=== PATIENT | male | born 1965 | race Caucasian/White ===

== ENCOUNTER 2016-07-27 23:24 | Emergency (ER) | payer BC ==
[2016-07-27] MEDS ORDERED: ASPIRIN 81 MG TABLET, CHEWABLE PO ONE (23:32)
--- NOTE | 2016-07-27 23:46 | EKG REPORT ---
SEVERITY:- BORDERLINE ECG - SINUS RHYTHM BORDERLINE INFERIOR Q WAVES : Confirmed by: Tani Ragsdale 27-Jul-2016 23:45:04
--- NOTE | 2016-07-27 23:58 | ER Document Report ---
ED Cardiac - General Time seen by provider: 22:30 Mode of Arrival: Medic Information source: Patient, Emergency Med Personnel TRAVEL OUTSIDE OF THE [place] IN LAST 30 DAYS: No - HPI Patient complains to provider of: Chest pain, Chest tightness <RADHA WITT - Last Filed: 07/28/16 04:09> <GISELAFLAKO TRANG - Last Filed: 07/28/16 05:48> - General Chief Complaint: Chest Pain Stated Complaint: CHEST PAIN Notes: Patient is a 50-year-old male presents to emergency department with complaints of chest pain. Patient stated that she had an episode of chest pain yesterday morning around 02:30 and the patient took 2 nitroglycerin. Patient had more chest pain this evening and took aspirin prior to EMS arrival. EMS gave the patient nitroglycerin. Patient has a history of 4 cardiac stents with the most recent being placed in 2013. Patient states he recently had a hernia repair. Patient has been off of his medications for about one month. Patient states that he sees a coding quality coordinator in [place]. Patient states that currently he just has some chest tightness doesn't have any actual pain now. (RADHA WITT) - Related Data Allergies/Adverse Reactions: Penicillins Allergy (Verified 07/28/16 05:30) pineapple Allergy (Verified 07/28/16 05:30) Past Medical History - General Information source: Patient - Social History Smoking Status: Current Every Day Smoker Chew tobacco use (# tins/day): No Frequency of alcohol use: None Drug Abuse: None Family History: None - Past Medical History Cardiac Medical History: Reports: Hx Coronary Artery Disease, Hx Hypercholesterolemia, Hx Hypertension Endocrine Medical History: Reports: Hx Diabetes Mellitus Type 2 Traumatic Medical History: Reports: Hx Fractures Past Surgical History: Reports: Hx Cardiac Surgery, Hx Coronary Stent - x4, Other - hernia repair - Immunizations Immunizations up to date: No Hx Diphtheria, Pertussis, Tetanus Vaccination: No <RADHA WITT - Last Filed: 07/28/16 04:09> Review of Systems - Review of Systems Constitutional: No symptoms reported EENT: No symptoms reported Cardiovascular: See HPI, Chest pain Respiratory: No symptoms reported Gastrointestinal: No symptoms reported Genitourinary: No symptoms reported Male Genitourinary: No symptoms reported Musculoskeletal: No symptoms reported Skin: No symptoms reported Hematologic/Lymphatic: No symptoms reported Neurological/Psychological: No symptoms reported -: Yes All other systems reviewed and negative <RADHA WITT - Last Filed: 07/28/16 04:09> Physical Exam - Vital signs Interpretation: Normal - General General appearance: Appears well, Alert In distress: Mild - HEENT Head: Normocephalic, Atraumatic Eyes: Normal Pupils: PERRL Mucous membranes: Moist - Respiratory Respiratory status: No respiratory distress Chest status: Nontender Breath sounds: Normal Chest palpation: Normal - Cardiovascular Rhythm: Regular Heart sounds: Normal auscultation Murmur: No - Abdominal Inspection: Normal Distension: No distension Bowel sounds: Normal Tenderness: Nontender Organomegaly: No organomegaly - Back Back: Normal, Nontender - Extremities General upper extremity: Normal inspection, Normal ROM, Normal strength General lower extremity: Normal inspection, Normal ROM, Normal strength - Neurological Neuro grossly intact: Yes Cognition: Normal Orientation: AAOx4 Bibi Coma Scale Eye Opening: Spontaneous Steedman Coma Scale Verbal: Oriented Steedman Coma Scale Motor: Obeys Commands Steedman Coma Scale Total: 15 Speech: Normal - Psychological Associated symptoms: Normal affect, Normal mood - Skin Skin Temperature: Warm Skin Moisture: Dry <RADHA WITT - Last Filed: 07/28/16 04:09> Course - Laboratory Result Diagrams: 07/28/16 00:55 07/28/16 01:15 - Consults [facility] Transfer Time consulted: 02:36 Dr. Grajeda Time consulted: 02:45 Consulted provider: will see as inpatient <RADHA WITT - Last Filed: 07/28/16 04:09> - Laboratory Result Diagrams: 07/28/16 00:55 07/28/16 01:15 - Diagnostic Test Radiology reviewed: Reports reviewed - EKG Interpretation by Me EKG shows normal: Sinus rhythm Rate: Normal Rhythm: NSR <FLAKO HIGGINS - Last Filed: 07/28/16 05:48> - Re-evaluation Re-evalutation: 07/28/16 05:44 Patient is a 50-year-old male who comes in for chest pressure. Patient has not wanted to take nitroglycerin here in the emergency department. Patient has a troponin of 0.152. No acute changes on EKG. Patient was discussed with the coding quality coordinator at [facility] and will be accepted there for transfer due to his history and probable N STEMI today. Recommend giving the patient Lovenox and nitroglycerin. Patient denies any chest pressure at this time and does not want to take nitroglycerin. He is otherwise stable for transfer. Still awaiting bed at [facility] at this time. (FLAKO HIGGINS) - Vital Signs Vital signs: Temp Pulse Resp BP Pulse Ox 98.0 F 93 17 118/66 100 07/27/16 23:52 07/27/16 23:52 07/27/16 23:52 07/27/16 23:52 07/28/16 01:59 (RADHA WITT) (FLAKO HIGGINS) - Laboratory Laboratory results interpreted by me: 07/28/16 07/28/16 00:55 01:15 MCHC 36.8 H RDW 14.3 H Carbon Dioxide 20 L BUN 27 H Glucose 237 H Creatine Kinase 214 H (FLAKO HIGGINS) - Consults [facility] Transfer Reason for consultation: 07/28/16 02:36 Called transfer center for possible transfer, they will contact the hospitalist and call back. (RADHA WITT) Dr. Grajeda Reason for consultation: 07/28/16 02:36 Patient will be transferred to [facility], accepting physician is Dr. Grajeda. (RADHA WITT) Critical Care Note - Critical Care Note Total time excluding time spent on procedures (mins): 45 - evaluation and management of chest pain, diagnosis of on semi-, coordination of transfer, counseling of patient <FLAKO HIGGINS - Last Filed: 07/28/16 05:48> Discharge <RADHA WITT - Last Filed: 07/28/16 04:09> <FLAKO HIGGINS - Last Filed: 07/28/16 05:48> - Discharge Clinical Impression: NSTEMI (non-ST elevated myocardial infarction) Condition: Stable Disposition: [facility] Referrals: ISAC CARRERO MD [Primary Care Provider] - Follow up as needed Scribe Attestation: 07/28/16 05:46 I personally performed the services described in the documentation, reviewed and edited the documentation which was dictated to the scribe in my presence, and it accurately records my words and actions. (FLAKO HIGGINS) Scribe Documentation - Scribe Written by Gena:: Radha Witt 07/28/16 01:50 acting as scribe for :: Gisela <RADHA WITT - Last Filed: 07/28/16 04:09>
[2016-07-28 01:16] LABS: ABSOLUTE BASOPHILS # (AUTO) 0.1 10^3/uL (0.0-0.2); ABSOLUTE EOSINOPHILS # (AUTO) 0.2 10^3/uL (0.0-0.6); ABSOLUTE LYMPHOCYTES (AUTO) 2.6 10^3/uL (0.5-4.7); ABSOLUTE MONOCYTES (AUTO) 0.8 10^3/uL (0.1-1.4); ABSOLUTE NEUT (AUTO) 6.7 10^3/uL (1.7-8.2); BASOPHILS % (AUTO) 0.9 % (0-2); EOSINOPHILS % (AUTO) 2.4 % (0-6); HEMATOCRIT 38.4 % (37.9-51.0); HEMOGLOBIN 14.1 g/dL (13.5-17.0); HGB HCT DIFFERENCE 3.9; LYMPHOCYTES % (AUTO) 24.8 % (13-45); MEAN CORPUSCULAR HEMOGLOBIN 30.9 pg (27.0-33.4); MEAN CORPUSCULAR HGB CONC 36.8 g/dL (32.0-36.0); MEAN CORPUSCULAR VOLUME 84 fl (80-97); MONOCYTES % (AUTO) 7.7 % (3-13); RED BLOOD COUNT 4.57 10^6/uL (4.35-5.55); RED CELL DISTRIBUTION WIDTH 14.3 % (11.5-14.0); SEGMENTED NEUTROPHILS % (AUTO) 64.2 % (42-78); WHITE BLOOD COUNT 10.4 10^3/uL (4.0-10.5)
[2016-07-28 02:09] LABS: ALANINE AMINOTRANSFERASE 40 U/L (21-72); ALBUMIN 3.5 g/dL (3.5-5.0); ALKALINE PHOSPHATASE 106 U/L (38-126); ANION GAP 11 (5-19); ASPARTATE AMINO TRANSFERASE 33 U/L (17-59); BILIRUBIN,TOTAL 0.5 mg/dL (0.2-1.3); BLOOD UREA NITROGEN 27 mg/dL (7-20); CALCIUM 8.8 mg/dL (8.4-10.2); CARBON DIOXIDE 20 mmol/L (22-30); CHLORIDE 106 mmol/L (98-107); CREATINE KINASE 214 U/L (55-170); GLUCOSE 237 mg/dL (75-110); POTASSIUM 4.2 mmol/L (3.6-5.0); TOTAL PROTEIN 6.9 g/dL (6.3-8.2)
[2016-07-28 02:10] LABS: ALCOHOL < 10 mg/dL (NONE DETECTED)
[2016-07-28 02:21] LABS: CREATINE KINASE MB 2.14 ng/mL (<4.55)
[2016-07-28] MEDS ORDERED: NORMAL SALINE 1000 ML 1,000 ML IV ONE (02:24)
[2016-07-28 02:25] LABS: TROPONIN I 0.152 ng/mL
[2016-07-28] MEDS ORDERED: NITROGLYCERIN/D5W 250 ML IV PRN (02:38)
[2016-07-28] MEDS ORDERED: ENOXAPARIN SODIUM INJ 100 MG/1 ML DISP.SYRIN SUBCUT SCH ×3 (03:15→18:00)
[2016-07-28] MEDS ORDERED: ENOXAPARIN SODIUM INJ 100 MG/1 ML DISP.SYRIN SUBCUT ONE (03:30)
--- NOTE | 2016-07-28 10:47 | ER Document Report ---
[id number] is becoming anxious about being here so long, concerned about the medical bills that he cannot afford. He is not having pain at this time. He is encouraged to stay to get treatment, and that he has probably started close off a step or has another acute narrowing in one of his coronary arteries He will be given a meal, he has all of his regular medications in a bag, he was requested to take all his regular medications that he is supposed to take this morning from his own supply. The med list was given to his nurse to put into the med reconciliation portion of the chart to bring it up to date. 07/28/16 11:34 The nurse informed me the patient requested to go outside for fresh air. I asked her to see if he would be willing to take a nicotine patch, was told he refuses that that he wants to go outside. I told the nurse that was entirely up to the patient as he was not a prisoner, as he stated himself earlier. 07/28/16 14:15 The patient was checked in upon when transport arrived. He reports he continues to remain pain free and has no complaints at this time. His vital signs are stable.
[2016-07-28 13:34] VITALS: BP 103/68
== END 2016-07-28 13:59 | disposition short-term general hospital (02) ==
LOC: ER 23:24
DX: I21.4 Non-ST elevation (NSTEMI) myocardial infarction (principal); R07.89 Other chest pain; F17.200 Nicotine dependence, unspecified, uncomplicated; I25.10 Atherosclerotic heart disease of native coronary artery without angina pectoris; E78.00 Pure hypercholesterolemia, unspecified; I10 Essential (primary) hypertension; E11.9 Type 2 diabetes mellitus without complications; Z91.018 Allergy to other foods; Z88.0 Allergy status to penicillin
CPT/HCPCS: 93005; 99291; 96372; 96360; 36415; 82553; 80307; 82550; 85025; 80053; 84484; 71010; 93010; J7030; J1650

== ENCOUNTER 2018-07-15 16:58 | Observation (INO) | payer SELFPAY ==
--- NOTE | 2018-07-15 18:53 | ER Document Report ---
ED Medical Screen (RME) - General Chief Complaint: Chest Pain Stated Complaint: CHEST PAIN Time Seen by Provider: 07/15/18 18:46 Primary Care Provider: ISAC CARRERO MD [Primary Care Provider] - Follow up as needed Mode of Arrival: Ambulatory Information source: Patient Notes: This is a 52-year-old man with a history of coronary artery disease (4 stents, last one 2 years ago at [facility]-Dr Alarcon), hypertension, diabetes, dyslipidemia who presents to the emergency room with intermittent retrosternal chest pain worse with exertion over the past week. Patient states on average she has had a cardiac stent every 2 years and he states that the symptoms are similar to previous episodes before requiring a stent in the past. Patient did take his full dose aspirin today TRAVEL OUTSIDE OF THE [place] IN LAST 30 DAYS: No - Related Data Allergies/Adverse Reactions: Penicillins Allergy (Verified 07/28/16 05:30) pineapple Allergy (Verified 07/28/16 05:30) Past Medical History - Social History Chew tobacco use (# tins/day): No Frequency of alcohol use: Occasional Drug Abuse: None Family history: CAD, CVA, DM, Hyperlipidemia, Hypertension, Malignancy, Thyroid Disfunction - Past Medical History Cardiac Medical History: Reports: Hx Coronary Artery Disease, Hx Hypercholesterolemia, Hx Hypertension Endocrine Medical History: Reports: Hx Diabetes Mellitus Type 2 Renal/ Medical History: Denies: Hx Peritoneal Dialysis Traumatic Medical History: Reports: Hx Fractures Past Surgical History: Reports: Hx Cardiac Surgery, Hx Coronary Stent - x4, Other - hernia repair - Immunizations Immunizations up to date: No Hx Diphtheria, Pertussis, Tetanus Vaccination: No Physical Exam - Vital signs Vitals: Temp Pulse Resp BP Pulse Ox 97.7 F 89 16 124/75 98 07/15/18 17:08 07/15/18 17:08 07/15/18 17:08 07/15/18 17:08 07/15/18 17:08 Course - Vital Signs Vital signs: Temp Pulse Resp BP Pulse Ox 97.7 F 89 16 124/75 98 07/15/18 17:08 07/15/18 17:08 07/15/18 17:08 07/15/18 17:08 07/15/18 17:08 Doctor's Discharge - Discharge Referrals: ISAC CARRERO MD [Primary Care Provider] - Follow up as needed
--- NOTE | 2018-07-15 19:11 | RADIOLOGY REPORT (SQ) ---
EXAM DESCRIPTION: CHEST SINGLE VIEW COMPLETED DATE/TIME: 07/15/2018 7:01 pm REASON FOR STUDY: cp COMPARISON: None. EXAM PARAMETERS: NUMBER OF VIEWS: One view. TECHNIQUE: Single frontal radiographic view of the chest acquired. RADIATION DOSE: NA LIMITATIONS: None. FINDINGS: LUNGS AND PLEURA: No opacities, masses or pneumothorax. No pleural effusion. MEDIASTINUM AND HILAR STRUCTURES: No masses. Contour normal. HEART AND VASCULAR STRUCTURES: Heart normal in size. Normal vasculature. BONES: No acute findings. HARDWARE: None in the chest. OTHER: No other significant finding. IMPRESSION: NO ACUTE RADIOGRAPHIC FINDING IN THE CHEST. TECHNICAL DOCUMENTATION: JOB ID: [id number] [employer]- All Rights Reserved Reading location - IP/workstation name: [email or web address]
[2018-07-15 19:39] LABS: ABSOLUTE BASOPHILS # (AUTO) 0.1 10^3/uL (0.0-0.2); ABSOLUTE EOSINOPHILS # (AUTO) 0.2 10^3/uL (0.0-0.6); ABSOLUTE LYMPHOCYTES (AUTO) 2.3 10^3/uL (0.5-4.7); ABSOLUTE MONOCYTES (AUTO) 0.6 10^3/uL (0.1-1.4); ABSOLUTE NEUT (AUTO) 5.6 10^3/uL (1.7-8.2); BASOPHILS % (AUTO) 0.6 % (0-2); EOSINOPHILS % (AUTO) 1.9 % (0-6); HEMATOCRIT 40.6 % (37.9-51.0); HEMOGLOBIN 14.1 g/dL (13.5-17.0); LYMPHOCYTES % (AUTO) 25.9 % (13-45); MEAN CORPUSCULAR HEMOGLOBIN 29.5 pg (27.0-33.4); MEAN CORPUSCULAR HGB CONC 34.8 g/dL (32.0-36.0); MEAN CORPUSCULAR VOLUME 85 fl (80-97); MONOCYTES % (AUTO) 6.6 % (3-13); PLATELET COUNT 163 10^3/uL (150-450); RED BLOOD COUNT 4.79 10^6/uL (4.35-5.55); RED CELL DISTRIBUTION WIDTH 14.3 % (11.5-14.0); TOTAL CELLS COUNTED % (AUTO) 100 %; WHITE BLOOD COUNT 8.7 10^3/uL (4.0-10.5)
[2018-07-15 19:59] LABS: ALANINE AMINOTRANSFERASE 44 U/L (21-72); ALBUMIN 4.6 g/dL (3.5-5.0); ALKALINE PHOSPHATASE 79 U/L (38-126); ANION GAP 8 (5-19); ASPARTATE AMINO TRANSFERASE 25 U/L (17-59); BILIRUBIN,DIRECT 0.2 mg/dL (0.0-0.4); BILIRUBIN,TOTAL 0.3 mg/dL (0.2-1.3); BLOOD UREA NITROGEN 16 mg/dL (7-20); CALCIUM 9.8 mg/dL (8.4-10.2); CARBON DIOXIDE 28 mmol/L (22-30); CHLORIDE 101 mmol/L (98-107); CREATINE KINASE 128 U/L (55-170); GLUCOSE 214 mg/dL (75-110); POTASSIUM 4.4 mmol/L (3.6-5.0); SODIUM 137.4 mmol/L (137-145)
[2018-07-15 20:16] LABS: CREATINE KINASE MB 1.45 ng/mL (<4.55); TROPONIN I 0.03 ng/mL
--- NOTE | 2018-07-15 20:53 | ER Document Report ---
ED General - General Chief Complaint: Chest Pain Stated Complaint: CHEST PAIN Time Seen by Provider: 07/15/18 18:46 Mode of Arrival: Ambulatory Notes: Patient is a 52-year-old male with a past medical history of coronary artery disease, hypertension, hyperlipidemia, smoker, presents with an episode of chest pain that started at approximately 1500 today. States that it was a crushing, severe pain to the left chest with radiation into his jaw and left upper extremity. It is associated diaphoresis and nausea during that episode. States he took 2 tablets of nitroglycerin which did resolve the episode and has not recurred since that time. 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 He has not contacted his primary doctor regarding today's concerns. He reports that he is supposed to be taking clopidogrel but does not due to lack of insurance. TRAVEL OUTSIDE OF THE [place] IN LAST 30 DAYS: No - Related Data Allergies/Adverse Reactions: Penicillins Allergy (Verified 07/28/16 05:30) pineapple Allergy (Verified 07/28/16 05:30) Past Medical History - General Information source: Patient - Social History Smoking Status: Current Some Day Smoker Chew tobacco use (# tins/day): No Frequency of alcohol use: Occasional Drug Abuse: None Lives with: Spouse/Significant other Family History: Reviewed & Not Pertinent Patient has suicidal ideation: No Patient has homicidal ideation: No - Past Medical History Cardiac Medical History: Reports: Hx Coronary Artery Disease, Hx Hypercho lesterolemia, Hx Hypertension Endocrine Medical History: Reports: Hx Diabetes Mellitus Type 2 Renal/ Medical History: Denies: Hx Peritoneal Dialysis Traumatic Medical History: Reports: Hx Fractures Past Surgical History: Reports: Hx Cardiac Surgery, Hx Coronary Stent - x4, Other - hernia repair - Immunizations Immunizations up to date: No Hx Diphtheria, Pertussis, Tetanus Vaccination: No Review of Systems - Review of Systems Notes: Constitutional: Negative for fever. HENT: Negative for sore throat. Eyes: Negative for visual changes. Cardiovascular: Positive for chest pain. Respiratory: Negative for shortness of breath. Gastrointestinal: Negative for abdominal pain, vomiting or diarrhea. Genitourinary: Negative for dysuria. Musculoskeletal: Negative for back pain. Skin: Negative for rash. Neurological: Negative for headaches, weakness or numbness. 10 point ROS negative except as marked above and in HPI. Physical Exam - Vital signs Vitals: Temp Pulse Resp BP Pulse Ox 97.7 F 89 16 124/75 98 07/15/18 17:08 07/15/18 17:08 07/15/18 17:08 07/15/18 17:08 07/15/18 17:08 Interpretation: Normal Notes: PHYSICAL EXAMINATION: GENERAL: Well-appearing, well-nourished and in no acute distress. HEAD: Atraumatic, normocephalic. EYES: Pupils equal round and reactive to light, extraocular movements intact, sclera anicteric, conjunctiva are normal. ENT: nares patent, oropharynx clear without exudates. Moist mucous membranes. NECK: Normal range of motion, supple without lymphadenopathy LUNGS: Breath sounds clear to auscultation bilaterally and equal. No wheezes rales or rhonchi. HEART: Regular rate and rhythm without murmurs ABDOMEN: Soft, nontender, normoactive bowel sounds. No guarding, no rebound. No masses appreciated. EXTREMITIES: Normal range of motion, no pitting or edema. No cyanosis. NEUROLOGICAL: No focal neurological deficits. Moves all extremities spontaneously and on command. PSYCH: Normal mood, normal affect. SKIN: Warm, Dry, normal turgor, no rashes or lesions noted. Course - Re-evaluation Re-evalutation: 07/15/18 20:52 Patient presents with worrisome chest pain story of an acute onset of left-sided chest pressure radiating to the left upper extremity, left jaw with associated shortness of breath and diaphoresis. His pain has resolved after receiving 2 sublingual nitroglycerin at home prior to arrival. Patient has a long-standing history of cardiac disease, has had 4 stents in the past, last cardiac stress test and catheterization were in July 2016. He is also supposed to be on clopidogrel but is not taking it due to lack of insurance. Patient's EKG without any immediate concerning findings. Initial troponin is borderline at 0.03. Repeat troponin pending. If this remains within the indeterminate or acceptable range will plan for hospitalization at this facility with stress testing and if it becomes more worrisomely elevated will plan for transfer. 07/15/18 23:35 Patient's troponin has gone to 0.039. Remains chest pain free. I discussed with the hospitalist for admission given high risk chest pain, heart score of 5 - Vital Signs Vital signs: Temp Pulse Resp BP Pulse Ox 98.4 F 89 10 L 161/80 H 99 07/15/18 23:39 07/15/18 17:08 07/16/18 03:01 07/16/18 03:01 07/16/18 03:01 - Laboratory Result Diagrams: 07/15/18 19:26 07/15/18 19:26 Laboratory results interpreted by me: 07/15/18 07/15/18 19:26 19:26 RDW 14.3 H Glucose 214 H - Diagnostic Test Radiology reviewed: Image reviewed, Reports reviewed Radiology results interpreted by me: 07/15/18 20:53 Chest x-ray: No acute infiltrate or pneumothorax - EKG Interpretation by Me Additional EKG results interpreted by me: 07/15/18 20:54 Sinus rhythm, rate 86. No ST elevations or depressions. Inferior Q waves present from previous EKG. QTC 426. Discharge - Discharge Clinical Impression: Chest pain Qualifiers: Chest pain type: unspecified Qualified Code(s): R07.9 - Chest pain, unspecified Condition: Fair Disposition: ADMITTED OBSERVATION Admitting Provider: Hospitalist Unit Admitted: Telemetry
--- NOTE | 2018-07-15 21:12 | EKG REPORT ---
SEVERITY:- NORMAL ECG - SINUS RHYTHM : Confirmed by: Kirti Paulson MD 15-Jul-2018 21:10:59
[2018-07-16] MEDS ORDERED: ONDANSETRON HCL INJ/PF 4 MG/2 ML SDV IV PRN (00:21)
[2018-07-16] MEDS ORDERED: MAG HYDROX/AL HYDROX/SIMETH SUSP 30 ML UDCUP PO PRN (00:21)
[2018-07-16] MEDS ORDERED: MAGNESIUM HYDROXIDE SUSP 30 ML UDCUP PO PRN (00:21)
[2018-07-16] MEDS ORDERED: TEMAZEPAM 15 MG CAPSULE PO PRN (00:21)
[2018-07-16] MEDS ORDERED: ONDANSETRON 4 MG TAB.RAPDIS PO PRN (00:21)
[2018-07-16] MEDS ORDERED: NICOTINE 21 MG/24 HR PATCH.TD24 TD PRN (00:34)
[2018-07-16] MEDS ORDERED: ACETAMINOPHEN 325 MG TABLET PO PRN (00:34)
[2018-07-16] MEDS ORDERED: MORPHINE SULFATE 10 MG/ML INJ IV PRN ×3 (00:34)
[2018-07-16] MEDS ORDERED: NITROGLYCERIN 0.4 MG/TAB 25 TAB/BOTTLE SL PRN (00:34)
[2018-07-16] MEDS ORDERED: LABETALOL HCL INJ 20 MG/4 ML DISP.SYRIN IV PRN (00:34)
[2018-07-16] MEDS ORDERED: ALBUTEROL SULFATE 0.083% NEB 2.5 MG/3 ML AMPUL NEB PRN (00:34)
[2018-07-16] MEDS ORDERED: ATORVASTATIN CALCIUM 80 MG TABLET PO ONE (01:10)
[2018-07-16] MEDS ORDERED: FAMOTIDINE 20 MG TABLET PO ONE (01:10)
[2018-07-16 04:57] LABS: CREATINE KINASE MB 1.38 ng/mL (<4.55); TROPONIN I 0.026 ng/mL
[2018-07-16 05:01] LABS: FREE T3 3.56 pg/mL (2.77-5.27); FREE T4 (FREE THYROXINE) 1.14 ng/dL (0.78-2.19)
[2018-07-16 05:15] LABS: THYROID STIMULATING HORMONE 2.73 uIU/mL (0.47-4.68)
[2018-07-16] MEDS: HEPARIN SOD (PORCINE) 5,000 UNIT/ML 1 ML SYRINGE SUBCUT SCH ×3 (06:01→20:59)
[2018-07-16] MEDS ORDERED: SITAGLIPTIN PHOSPHATE 50 MG TABLET PO SCH (08:00)
--- NOTE | 2018-07-16 09:17 | PDOC H&P ---
History of Present Illness Admission Date/PCP: 07/15/18 23:54 Patient complains of: Chest pain History of Present Illness: YUSUF BREAUX is a 52 year old male who presents the emergency room with a history of chest pain beginning approximately 4 PM on the date of admission. He describes his chest pain as a severe, constant, substernal intense pressure radiating to the left precordium as well as the left neck and shoulder and then down the left arm. The pain resolved with nitroglycerin x2 after arriving in the emergency room. He further admits that he has had intermittent chest pain for approximately 1 week occurring once or twice each day and lasting for a few minutes resolving spontaneously with rest. The pain is worsened by exertion. He admits that this episode is very similar to prior episodes that he has had when he is eventually required stent placement for his worsening coronary artery disease. He has had 3 different stenting procedures having gotten 2 stents on his first catheterization and one stent for each of the last 2 times that he was catheterized. In the emergency room patient's initial cardiac enzymes were mildly increased but not in the indeterminate range. His EKG showed no evidence of acute injury or ischemia and therefore he will be placed in observation status and have serial cardiac enzyme evaluations performed. Past Medical History Cardiac Medical History: Reports: Coronary Artery Disease, Hyperlipidema, Hypertension Pulmonary Medical History: Denies: Asthma, Chronic Obstructive Pulmonary Disease (COPD), Respiratory Failure EENT Medical History: Reports: None Neurological Medical History: Denies: Hemorrhagic CVA, Ischemic CVA, Multiple Sclerosis, Seizures Endocrine Medical History: Reports: Diabetes Mellitus Type 2 Denies: Diabetes Mellitus Type 1, Hyperthyroidism, Hypothyroidism Renal/ Medical History: Denies: Chronic Kidney Disease, Nephrolithiasis Malignancy Medical History: Reports: None GI Medical History: Denies: Cirrhosis, Hepatitis Musculoskeltal Medical History: Denies: Arthritis, Gout Skin Medical History: Denies: Eczema, Psoriasis Psychiatric Medical History: Reports: Substance Abuse, Tobacco Dependency Denies: Alcohol Dependency Traumatic Medical History: Reports: None Hematology: Denies: Anemia, Bleeding Tendencies Infectious Medical History: Reports: None Past Surgical History Past Surgical History: Reports: Cardiac Catheterization, Coronary Stent - x4, O ther - hernia repair Social History Information Source: Patient Lives with: Spouse/Significant other Smoking Status: Current Every Day Smoker Frequency of Alcohol Use: None Hx Recreational Drug Use: Yes Drugs: Other - Methamphetamine in the remote past Hx Prescription Drug Abuse: No - Advance Directive Resuscitation Status: Full Code Surrogate healthcare decision maker:: Kaushal Breaux Family History Family History: None Parental Family History Reviewed: Yes Children Family History Reviewed: Yes Sibling(s) Family History Reviewed.: Yes Medication/Allergy Home Medications: Aspirin [Aspirin 325 mg Tablet] 235 mg PO DAILY 07/28/16 Atorvastatin Calcium 80 mg PO DAILY 07/28/16 Azilsartan Medoxomil [Edarbi] 40 mg PO DAILY 07/28/16 Citalopram Hydrobromide [Celexa] 1 tab PO DAILY 07/28/16 Empagliflozin [Jardiance] 25 mg PO DAILY 07/28/16 Lisinopril 10 mg PO 07/28/16 Metoprolol Tartrate [Lopressor 25 mg Tablet] 25 mg PO BID 07/28/16 Sitagliptin Phos/Metformin HCl [Janumet Xr 100-1,000 mg Tablet] 1 each PO 07/28/16 Allergies/Adverse Reactions: Penicillins Allergy (Verified 07/28/16 05:30) pineapple Allergy (Verified 07/28/16 05:30) Review of Systems Constitutional: ABSENT: chills, fever(s) Eyes: ABSENT: visual disturbances, other - Ocular pain Ears: ABSENT: hearing changes, other - Ear pain Nose, Mouth, and Throat: ABSENT: mouth pain, sore throat Cardiovascular: PRESENT: as per HPI, chest pain. ABSENT: dyspnea on exertion, orthropnea, palpitations Respiratory: ABSENT: cough, dyspnea Gastrointestinal: ABSENT: abdominal pain, constipation, diarrhea, nausea, vomiting Genitourinary: ABSENT: dysuria, hematuria Musculoskeletal: ABSENT: deformity, joint swelling Integumentary: ABSENT: pruritus, rash Neurological: ABSENT: confusion, convulsions, memory loss Psychiatric: ABSENT: anxiety, depression Endocrine: ABSENT: cold intolerance, heat intolerance Hematologic/Lymphatic: ABSENT: easy bleeding, easy bruising Physical Exam Vital Signs: Temp Pulse Resp BP Pulse Ox 98.4 F 89 17 132/82 H 97 07/15/18 23:39 07/15/18 17:08 07/16/18 00:01 07/16/18 00:01 07/16/18 00:01 Intake & Output 07/14/18 07/15/18 07/16/18 23:59 23:59 23:59 Weight 99 kg General appearance: PRESENT: no acute distress, cooperative Head exam: PRESENT: atraumatic, normocephalic Eye exam: PRESENT: conjunctiva pink, EOMI. ABSENT: scleral icterus Ear exam: PRESENT: normal external ear exam. ABSENT: bleeding, drainage Mouth exam: PRESENT: dry mucosa, neck supple Neck exam: ABSENT: thyromegaly, tracheal deviation Respiratory exam: PRESENT: clear to auscultation thompson, decreased breath sounds - Mildly decreased breath sounds throughout all bravo, symmetrical, unlabored Cardiovascular exam: PRESENT: RRR. ABSENT: clicks, gallop, rubs Pulses: PRESENT: normal radial pulses, normal dorsalis pedis pul Vascular exam: PRESENT: normal capillary refill. ABSENT: pallor GI/Abdominal exam: PRESENT: normal bowel sounds, soft Rectal exam: PRESENT: deferred Extremities exam: ABSENT: joint swelling, pedal edema Musculoskeletal exam: PRESENT: ambulatory, full ROM Neurological exam: PRESENT: alert, oriented to person, oriented to place, oriented to time, oriented to situation, CN II-XII grossly intact. ABSENT: motor sensory deficit Psychiatric exam: PRESENT: appropriate affect, normal mood Skin exam: PRESENT: dry, intact, warm. ABSENT: jaundice, rash, urticaria Results Laboratory Results: 07/15/18 19:26 07/15/18 19:26 07/15/18 07/15/18 19:26 19:26 WBC 8.7 RBC 4.79 Hgb 14.1 Hct 40.6 MCV 85 MCH 29.5 MCHC 34.8 RDW 14.3 H Plt Count 163 Seg Neutrophils % 65.0 Lymphocytes % 25.9 Monocytes % 6.6 Eosinophils % 1.9 Basophils % 0.6 Absolute Neutrophils 5.6 Absolute Lymphocytes 2.3 Absolute Monocytes 0.6 Absolute Eosinophils 0.2 Absolute Basophils 0.1 Sodium 137.4 Potassium 4.4 Chloride 101 Carbon Dioxide 28 Anion Gap 8 BUN 16 Creatinine 0.92 Est GFR ( Amer) > 60 Est GFR (Non-Af Amer) > 60 Glucose 214 H Calcium 9.8 Total Bilirubin 0.3 AST 25 ALT 44 Alkaline Phosphatase 79 Total Protein 7.0 Albumin 4.6 07/15/18 07/15/18 07/15/18 19:26 19:26 22:16 Creatine Kinase 128 CK-MB (CK-2) 1.45 Troponin I 0.030 0.039 Impressions: Chest X-Ray 07/15/18 18:52 IMPRESSION: NO ACUTE RADIOGRAPHIC FINDING IN THE CHEST. Assessment & Plan - Diagnosis (1) Chest pain Qualifiers: Chest pain type: unspecified Qualified Code(s): R07.9 - Chest pain, unspecified Is this a current diagnosis for this admission?: Yes Plan: Serial cardiac enzymes will be performed patient's chest pain. Based upon the results of these tests further evaluation will be determined or an appropriate time for him to seek follow-up with his usual gold assayer in [place] will be arranged. Patient will use morphine 2-4 mg IV every 2 hours as needed for chest pain based upon a sliding scale. (2) Coronary artery disease Qualifiers: Coronary Disease-Associated Artery/Lesion type: [place] artery [place] vs. transplanted heart: [place] heart Associated angina: angina presence unspecified Qualified Code(s): I25.10 - Atherosclerotic heart disease of [place] coronary artery without angina pectoris Is this a current diagnosis for this admission?: Yes Plan: Patient will have his chest pain evaluated with serial cardiac enzyme determinations. If indicated a stress test or cardiac catheterization will be performed. (3) Diabetes mellitus type 2 in nonobese Is this a current diagnosis for this admission?: Yes Plan: Patient will continue his usual diabetic treatment during his hospital course. A hemoglobin A1c will be obtained to evaluate his current therapy's efficacy (4) Hypertension Qualifiers: Hypertension type: essential hypertension Qualified Code(s): I10 - Essential (primary) hypertension Is this a current diagnosis for this admission?: Yes Plan: The patient will be continued on his current therapy for hypertension with changes made only as required. (5) Tobacco use disorder, moderate, dependence Is this a current diagnosis for this admission?: Yes Plan: Smoking cessation is advised. Smoking cessation counseling is given. A nicotine replacement patch is available to the patient. - Time Time Spent: 30 to 50 Minutes Critical Time spent with patient: Less than 15 minutes Smoking Cessation Education: 3 to 10 minutes Medications reviewed and adjusted accordingly: Yes Anticipated discharge: Home - Inpatient Certification Based on my medical assessment, after consideration of the patient's comorbidities, presenting symptoms, or acuity I expect that the services needed warrant INPATIENT care.: No I certify that my determination is in accordance with my understanding of Medicare's requirements for reasonable and necessary INPATIENT services [42 CFR 412.3e].: No Medical Necessity: Need Close Monitoring Due to Risk of Patient Decompensation, Risk of Complication if Not Cared For in Hospital
[2018-07-16] MEDS ORDERED: (PENDING PHARMACY ID) (Empagliflozin [Jardiance] 25 MG) PO SCH (10:00)
[2018-07-16] MEDS ORDERED: AZILSARTAN MEDOXOMIL 40 MG PO SCH (10:00)
[2018-07-16] MEDS: METFORMIN HCL 500 MG TABLET PO SCH ×2 (10:25→18:20)
[2018-07-16] MEDS: CITALOPRAM HYDROBROMIDE 20 MG TABLET PO SCH (10:30)
[2018-07-16] MEDS: METOPROLOL TARTRATE 25 MG TABLET PO SCH ×2 (10:32→18:26)
[2018-07-16] MEDS: ASPIRIN 325 MG TABLET PO SCH (10:33)
[2018-07-16] MEDS: FAMOTIDINE 20 MG TABLET PO SCH ×2 (10:34→21:00)
[2018-07-16 11:34] LABS: CREATINE KINASE MB 1.22 ng/mL (<4.55)
[2018-07-16 11:38] LABS: TROPONIN I < 0.012 ng/mL
[2018-07-16] MEDS ORDERED: GLUCAGON,HUMAN RECOMB 1 MG INJ IM PRN (17:07)
[2018-07-16] MEDS ORDERED: DEXTROSE 40% GEL 15 GM TUBE PO PRN ×2 (17:07)
[2018-07-16] MEDS ORDERED: INSULIN LISPRO 100 UNIT/ML 3 ML VIAL SUBCUT PRN (17:07)
[2018-07-16] MEDS ORDERED: DEXTROSE 50%-WATER 25 GM/50 ML DISP.SYRIN IV PRN ×2 (17:07)
--- NOTE | 2018-07-16 17:09 | Progress Note ---
Provider Note Provider Note: 52-year-old male with history of CAD, [place], stent x4 presents to our with chest pain. States he had a heated discussion with his boss when the patient began experiencing midsternal chest tightness. His girlfriend gave him 2 sublingual nitroglycerin tablets and 325MG aspirin for his chest pain. The patient states that his pain was relieved following the second nitroglycerin tablet. Given his PMH, the patient decided to come to the emergency department. Admitted for chest pain observation. 1. CHEST PAIN: EKG shows NSR. Serial troponins negligible - no longer trending. Patient has been chest pain-free since arrival. Given his symptomology and PMH, plan for stress test tomorrow. 2. CAD: Patient admits to being noncompliant with medications due to lack of insurance and inability to afford to pay out of pocket. Resume previous doses of statin, aspirin, antihypertensives. Cardiac diet. 3. DM: Continue home dose metformin. Accu-Cheks before meals at bedtime. Humalog sliding scale insulin. HgbA1c in AM
[2018-07-16] MEDS ORDERED: ATORVASTATIN CALCIUM 80 MG TABLET PO SCH (22:00)
[2018-07-17] MEDS: HEPARIN SOD (PORCINE) 5,000 UNIT/ML 1 ML SYRINGE SUBCUT SCH ×2 (06:01→14:15)
[2018-07-17] MEDS ORDERED: REGADENOSON INJ 0.4 MG/5 ML DISP.SYRIN IV ONE (09:04)
[2018-07-17] MEDS ORDERED: NITROGLYCERIN 0.4 MG/TAB 25 TAB/BOTTLE ONE (09:04)
[2018-07-17] MEDS: METFORMIN HCL 500 MG TABLET PO SCH ×2 (11:38→17:35)
[2018-07-17] MEDS: METOPROLOL TARTRATE 25 MG TABLET PO SCH ×2 (11:51→17:35)
[2018-07-17] MEDS: CITALOPRAM HYDROBROMIDE 20 MG TABLET PO SCH (11:51)
[2018-07-17] MEDS: ASPIRIN 325 MG TABLET PO SCH (11:51)
[2018-07-17] MEDS: FAMOTIDINE 20 MG TABLET PO SCH (11:52)
--- NOTE | 2018-07-17 12:21 | DRAGON STRESS TEST REPORT ---
Date of procedure 07/17/2018 Patient name Nestor Breaux Date of 1965 Medical record #[id number] Ordering provider Dr. Eliezer Miller Reason for study chest pain Imaging protocol Walking Lexiscan nuclear MIBI SPECT study Rest images of the heart were obtained 60 minutes after injection of technetium 99m sestamibi 14.49 mCi. Under the supervision of Dr. Sonido Benjamin MD patient was walked on manual treadmill protocol and given Lexiscan 0.4 mg IV followed by 43.5 mCi of technetium 99m sestamibi. Patient's resting heart rate was 83 bpm and increased to a maximum of 142 bpm. Patient's resting blood pressure was 158/100 mmHg and increased to a maximum of 189/111 mmHg. Patient's resting EKG showed sinus rhythm with poor R wave progression and upon walking and Lexiscan injection patient developed sinus tachycardia with nonspecific ST depression noted in anterolateral and inferior leads. Patient developed chest tightness after Lexiscan injection which improved after he was given sublingual nitroglycerin. Some of the stress EKG has had artifacts which limit their interpretation. Stress images of the heart were obtained 60 minutes after technetium stress dose was given. Raw rest and stress images were reviewed and showed significant gut uptake. Myocardial perfusion imaging shows partially reversible perfusion defects in the LV apical to mid anterior, anteroseptal and inferior LV wall segments. Computer-assisted tomographic analysis shows borderline normal LV wall motion. LVEF was calculated at 44%. RV radiotracer uptake and systolic contractility appears normal. Impression 1. Lexiscan induced chest pain relieved with nitro and nonspecific ST changes noted on EKG. 2. Myocardial perfusion imaging shows partially reversible perfusion defect in the inferior, apical to mid anterior and anteroseptal LV wall segments suggestive of mild myocardial ischemia over previous myocardial scarring. 3. LVEF calculated at 44%. 4. Borderline normal LV wall motion and systolic contractility. Given patient's previous history of coronary artery disease status post PCI and continued nicotine abuse recommend invasive coronary angiography for evaluation for obstructive coronary artery disease. PRO
--- NOTE | 2018-07-17 16:24 | PDOC TRANSFER SUMMARY ---
General Admission Date/PCP: 07/15/18 23:54 Admission Date: 07/17/18 Transfer Date: 07/17/18 Accepting Facility: [facility] Accepting Physician: DR. LUCIO, HOSPITALIST Resuscitation Status: Full Code - Transfer Diagnosis (1) Chest pain Is this a current diagnosis for this admission?: Yes (2) Coronary artery disease Is this a current diagnosis for this admission?: Yes (3) Diabetes mellitus type 2 in nonobese Is this a current diagnosis for this admission?: Yes (4) Hypertension Is this a current diagnosis for this admission?: Yes (5) Tobacco use disorder, moderate, dependence Is this a current diagnosis for this admission?: Yes - Transfer Medications Home Medications: Aspirin [Aspirin 325 mg Tablet] 325 mg PO DAILY 07/16/18 Atorvastatin Calcium [Lipitor 80 mg Tablet] 80 mg PO DAILY 07/16/18 Glipizide [Glocotrol 10 Mg Tablet] 10 mg PO DAILY 07/16/18 Metformin HCl 1,000 mg PO BID 07/16/18 Metoprolol Succinate [Toprol Xl 25 mg Tab.sr] 25 mg PO DAILY 07/16/18 Transfer Medications: Current Medications Acetaminophen (Tylenol 325 Mg Tablet) 650 mg PO Q4HP PRN PRN Reason: For headache, pain or fever Stop: 08/15/18 00:33 Al Hydrox/Mg Hydrox/Simethicone (Maalox Plus Susp 30 Udcup) 30 ml PO Q6HP PRN PRN Reason: HEARTBURN Stop: 08/15/18 00:20 Albuterol (Ventolin 0.083% Neb 2.5 Mg/3 Ml Ampul) 2.5 mg NEB RTQ1HP PRN PRN Reason: SHORTNESS OF BREATH Stop: 08/15/18 00:33 Aspirin (Aspirin 325 Mg Tablet) 235 mg PO DAILY LEAH Stop: 08/15/18 09:59 Last Admin: 07/17/18 11:51 Dose: Not Given Documented by: Atorvastatin Calcium (Lipitor 80 Mg Tablet) 80 mg PO QHS LEAH Stop: 08/15/18 21:59 Last Admin: 07/16/18 21:00 Dose: Not Given Documented by: Citalopram Hydrobromide (Celexa 20 Mg Tablet) 40 mg PO DAILY LEAH Stop: 08/15/18 09:59 Last Admin: 07/17/18 11:51 Dose: Not Given Documented by: Clopidogrel Bisulfate (Plavix 75 Mg Tablet) 75 mg PO DAILY [facility] Stop: 08/17/18 09:59 Dextrose (Dextrose Inj 50% Syringe (25 Gm/50 Ml)) 12.5 gm IV PRN PRN; Protocol PRN Reason: FOR BG 50-69 IN ALERT PATIENT Stop: 08/15/18 17:06 Dextrose (Dextrose Inj 50% Syringe (25 Gm/50 Ml)) 25 gm IV PRN PRN; Protocol PRN Reason: PER PROTOCOL Stop: 08/15/18 17:06 Famotidine (Pepcid 20 Mg Tablet) 20 mg PO Q12 [facility] Stop: 08/15/18 09:59 Last Admin: 07/17/18 11:52 Dose: Not Given Documented by: Glucagon (Glucagen Inj 1 Mg Vial) 1 mg IM PRN PRN; Protocol PRN Reason: Evaluate for BG < 70 Stop: 08/15/18 17:06 Glucose (Glutose 40% Gel 15 Gm Tube) 15 gm PO PRN PRN; Protocol PRN Reason: FOR BG 50-69 IN ALERT PATIENT Stop: 08/15/18 17:06 Glucose (Glutose 40% Gel 15 Gm Tube) 30 gm PO PRN PRN; Protocol PRN Reason: FOR BG < 50 IN ALERT PATIENT Stop: 08/15/18 17:06 Heparin Sodium (Porcine) (Heparin Inj 5,000 Units/Ml 1 Ml Syringe) 5,000 unit SUBCUT Q8 [facility] Stop: 08/15/18 05:59 Last Admin: 07/17/18 14:15 Dose: Not Given Documented by: Influenza Virus Vaccine Quadrival (Fluarix Adlt Quad Vac 0.5 Ml Syr) 0.5 ml IM .DISCHARGE PRN PRN Reason: THIS MED IS NOT "PRN" Stop: 08/15/18 18:36 Insulin Human Lispro (Humalog Insulin 100 Unit/1 Ml 3 Ml Vial) 0 - 12 unit SUBCUT ACHSP PRN; Protocol PRN Reason: PER PROTOCOL Stop: 08/15/18 17:06 Labetalol HCl (Normodyne Inj 20 Mg/4 Ml Syringe) 20 mg IV Q2HP PRN PRN Reason: Give For Sbp >160 or Dbp >100 Stop: 08/15/18 00:33 Magnesium Hydroxide (Milk Of Magnesia 30 Ml Udcup) 30 ml PO HSP PRN PRN Reason: FOR CONSTIPATION Stop: 08/15/18 00:20 Metformin HCl (Glucophage 500 Mg Tablet) 500 mg PO BIDBS LEAH Stop: 08/15/18 07:59 Last Admin: 07/17/18 11:38 Dose: Not Given Documented by: Metoprolol Tartrate (Lopressor 25 Mg Tablet) 25 mg PO BID LEAH Stop: 08/15/18 09:59 Last Admin: 07/17/18 11:51 Dose: Not Given Documented by: Morphine Sulfate (Morphine 10 Mg/Ml Inj) 2 mg IV Q2HP PRN PRN Reason: FOR PAIN SCALE 1-2 Stop: 07/23/18 00:33 Morphine Sulfate (Morphine 10 Mg/Ml Inj) 3 mg IV Q2HP PRN PRN Reason: FOR PAIN SCALE 3-4 Stop: 07/23/18 00:33 Morphine Sulfate (Morphine 10 Mg/Ml Inj) 4 mg IV Q2HP PRN PRN Reason: PAIN SCALE OF 5 Stop: 07/23/18 00:33 Nicotine (Nicoderm 21 Mg/24 Hr Transderm Patch) 1 each TD DAILYP PRN PRN Reason: WITHDRAWAL SYMPTOMS Stop: 08/15/18 00:33 Nitroglycerin (Nitrostat 0.4 Mg (1/150 Gr) Tabs 25/Bottle) 1 tab SL Q5MP PRN PRN Reason: FOR CHEST PAIN Stop: 08/15/18 00:33 Ondansetron HCl (Zofran Inj/Pf 4 Mg/2 Ml Sdv) 4 mg IV Q4HP PRN PRN Reason: FOR NAUSEA/VOMITING Stop: 08/15/18 00:20 Ondansetron HCl (Zofran Odt 4 Mg Tablet) 4 mg PO Q4HP PRN PRN Reason: FOR NAUSEA/VOMITING Stop: 08/15/18 00:20 Patient Own Medication (Azilsartan Medoxomil [Edarbi]) 40 mg PO .DAILY LEAH Stop: 08/15/18 09:59 Patient Own Medication (Empagliflozin [Jardiance]) 25 mg PO .DAILY LEAH Stop: 08/15/18 09:59 Sodium Chloride (Saline Flush 2.5 Ml Monoject Prefil Syrin) 2.5 ml IV Q8 LEAH Stop: 08/15/18 05:59 Last Admin: 07/17/18 14:16 Dose: Not Given Documented by: Temazepam (Restoril 15 Mg Capsule) 15 mg PO HSP PRN PRN Reason: SLEEP OR INSOMNIA Stop: 07/23/18 00:20 - Allergies Allergies/Adverse Reactions: Penicillins Allergy (Verified 07/28/16 05:30) pineapple Allergy (Verified 07/28/16 05:30) - Diet/Activity Discharge Diet: As Tolerated Hospital Course Hospital Course: 52-year-old male with history of CAD, CT, stent x4 presents to our with chest pain. States he had a heated discussion with his boss when the patient began experiencing midsternal chest tightness. His girlfriend gave him 2 sublingual nitroglycerin tablets and 325MG aspirin for his chest pain. The patient states that his pain was relieved following the second nitroglycerin tablet. Given his PMH, the patient decided to come to the emergency department. EKG shows NSR, no evidence of ischemia or infarction. Cardiac enzymes within normal limits. All other lab work relatively benign. [facility] workup. Cardiolite stress test performed. At the start of the stress test, after injection, the patient began complaining of midsternal chest pain. Procedure was stopped. Chest tightness improved following administration of sublingual glycerin. Myocardial perfusion imaging shows partially reversible perfusion defect in the inferior, apical to mid anterior and anterior septal LV wall segments suggestive of myocardial ischemia. Given the patient's history of CAD, status post PCI and continued nicotine abuse, [facility] cardiology recommends invasive coronary angiography. Plan to transfer patient to [facility] for procedure. Dr. Lucio, hospitalist, has graciously accepted the patient. Physical Exam Vital Signs: Temp Pulse Resp BP Pulse Ox 98.1 F 84 16 126/74 H 96 07/17/18 11:33 07/17/18 14:00 07/17/18 12:26 07/17/18 11:33 07/17/18 12:26 Intake & Output 07/16/18 07/17/18 07/18/18 06:59 06:59 06:59 Intake Total 486 1263 Output Total 1100 Balance -614 1263 Weight 99 kg 96.2 kg Results Laboratory Results: 07/15/18 19:26 07/15/18 19:26 07/17/18 03:38 Magnesium 2.1 07/15/18 07/15/18 07/15/18 19:26 19:26 22:16 Creatine Kinase 128 CK-MB (CK-2) 1.45 Troponin I 0.030 0.039 07/16/18 07/16/18 07/16/18 03:42 03:42 10:45 Creatine Kinase 106 115 CK-MB (CK-2) 1.38 Troponin I 0.026 07/16/18 10:45 Creatine Kinase CK-MB (CK-2) 1.22 Troponin I < 0.012 Impressions: Chest X-Ray 07/15/18 18:52 IMPRESSION: NO ACUTE RADIOGRAPHIC FINDING IN THE CHEST. Status: Imported from PACS Plan Discharge Plan: Transfer to [facility] for cardiac catheterization. Time Spent: Greater than 30 Minutes
[2018-07-17 16:40] VITALS: BP 149/84
[2018-07-18] MEDS ORDERED: CLOPIDOGREL BISULFATE 75 MG TABLET PO SCH (10:00)
== END 2018-07-17 18:44 | disposition short-term general hospital (02) ==
LOC: ER 16:58 → EH 23:54 → 3N 07-16 16:18
PROVIDERS: ADMIT Emergency Medicine; ATTEND Emergency Medicine
DX: R07.89 Other chest pain (principal); I25.10 Atherosclerotic heart disease of native coronary artery without angina pectoris; E11.9 Type 2 diabetes mellitus without complications; I10 Essential (primary) hypertension; F17.200 Nicotine dependence, unspecified, uncomplicated; I25.2 Old myocardial infarction; E78.5 Hyperlipidemia, unspecified; R61 Generalized hyperhidrosis; R11.0 Nausea; Z79.899 Other long term (current) drug therapy; Z79.82 Long term (current) use of aspirin; Z79.84 Long term (current) use of oral hypoglycemic drugs; Z95.5 Presence of coronary angioplasty implant and graft; Z98.890 Other specified postprocedural states; Z91.14 Patient's other noncompliance with medication regimen; Z59.6 Low income; Z59.7 Insufficient social insurance and welfare support; Z82.49 Family history of ischemic heart disease and other diseases of the circulatory system
CPT/HCPCS: 93005; 99285; 36415 ×3; 84439; 82553 ×2; 82962 ×2; 82550 ×2; 83735; 84443; 85025; 80053; 84484 ×2; 84481; 83036; 93017; 71045; 78452; 93010; A9500; J2785; J1644; J3490; Q9969

== ENCOUNTER 2020-06-22 20:56 | Emergency (ER) | payer MEDICAID ==
--- NOTE | 2020-06-22 21:28 | ER Document Report ---
ED Medical Screen (RME) - General Chief Complaint: Chest Pain Stated Complaint: CHEST PAIN Time Seen by Provider: 06/22/20 21:18 Notes: Patient is a 54-year-old male with a history of multiple cardiac stent placements and a CABG who presents to the emergency department with the chief complaint of chest pain. Describes his pain as a squeezing pain, "like somebody is taking their fingernails in my chest." Patient states that his symptoms st arted yesterday. He took a nitroglycerin on the way here to the emergency department. Patient takes 325 mg of aspirin daily. Exam: S1, S2. I have greeted and performed a rapid initial assessment of this patient. A comprehensive ED assessment and evaluation of the patient, analysis of test results and completion of medical decision making process will be conducted by an additional ED providers. TRAVEL OUTSIDE OF THE [place] IN LAST 30 DAYS: No - Related Data Allergies/Adverse Reactions: Penicillins Allergy (Verified 07/28/16 05:30) pineapple Allergy (Verified 07/28/16 05:30) Home Medications: metformin 1000mg BID. Jardiance 10mg daily. Glipizide 10mg. Advorstatin. metoprolol. Benlaflaxin. ASpirin. Omeprazole Past Medical History - Social History Chew tobacco use (# tins/day): No Frequency of alcohol use: None Drug Abuse: None Family history: CAD, CVA, DM, Hyperlipidemia, Hypertension, Malignancy, Thyroid Disfunction - Past Medical History Cardiac Medical History: Reports: Hx Coronary Artery Disease, Hx Hypercholesterolemia, Hx Hypertension Pulmonary Medical History: Denies: Hx Asthma, Hx COPD, Hx Respiratory Failure Neurological Medical History: Denies: Hx Seizures Endocrine Medical History: Reports: Hx Diabetes Mellitus Type 2. Denies: Hx Diabetes Mellitus Type 1, Hx Hyperthyroidism, Hx Hypothyroidism Renal/ Medical History: Denies: Hx Peritoneal Dialysis GI Medical History: Denies: Hx Cirrhosis, Hx Hepatitis Musculoskeltal Medical History: Denies Hx Arthritis, Denies Hx Gout Skin Medical History: Denies Hx Eczema, Denies Hx Psoriasis Traumatic Medical History: Reports: Hx Fractures Infectious Medical History: Denies: Hx Hepatitis Past Surgical History: Reports: Hx Cardiac Catheterization, Hx Cardiac Surgery, Hx Coronary Stent - x4, Other - hernia repair - Immunizations Immunizations up to date: No Hx Diphtheria, Pertussis, Tetanus Vaccination: No Physical Exam - Vital signs Vitals: Temp Pulse Resp BP Pulse Ox 98.0 F 90 18 165/92 H 98 06/22/20 21:02 06/22/20 21:02 06/22/20 21:02 06/22/20 21:02 06/22/20 21:02 Course - Vital Signs Vital signs: Temp Pulse Resp BP Pulse Ox 98.0 F 90 18 165/92 H 98 06/22/20 21:02 06/22/20 21:02 06/22/20 21:02 06/22/20 21:02 06/22/20 21:02
[2020-06-22 23:05] LABS: ABSOLUTE BASOPHILS # (AUTO) 0.1 10^3/uL (0.0-0.2); ABSOLUTE EOSINOPHILS # (AUTO) 0.1 10^3/uL (0.0-0.6); ABSOLUTE LYMPHOCYTES (AUTO) 1.9 10^3/uL (0.5-4.7); ABSOLUTE MONOCYTES (AUTO) 0.5 10^3/uL (0.1-1.4); ABSOLUTE NEUT (AUTO) 4.6 10^3/uL (1.7-8.2); BASOPHILS % (AUTO) 0.8 % (0-2); EOSINOPHILS % (AUTO) 1.2 % (0-6); HEMATOCRIT 39.7 % (37.9-51.0); HEMOGLOBIN 13.8 g/dL (13.5-17.0); LYMPHOCYTES % (AUTO) 26.4 % (13-45); MEAN CORPUSCULAR HEMOGLOBIN 28.3 pg (27.0-33.4); MEAN CORPUSCULAR HGB CONC 34.7 g/dL (32.0-36.0); MEAN CORPUSCULAR VOLUME 82 fl (80-97); MONOCYTES % (AUTO) 6.4 % (3-13); PLATELET COUNT 143 10^3/uL (150-450); RED BLOOD COUNT 4.86 10^6/uL (4.35-5.55); RED CELL DISTRIBUTION WIDTH 13.8 % (11.5-14.0); SEGMENTED NEUTROPHILS % (AUTO) 65.2 % (42-78); TOTAL CELLS COUNTED % (AUTO) 100 %; WHITE BLOOD COUNT 7.1 10^3/uL (4.0-10.5)
[2020-06-22 23:24] LABS: ALBUMIN 4.2 g/dL (3.5-5.0); ALKALINE PHOSPHATASE 116 U/L (38-126); ANION GAP 10 (5-19); ASPARTATE AMINO TRANSFERASE 33 U/L (17-59); BILIRUBIN,DIRECT 0.4 mg/dL (0.0-0.4); BILIRUBIN,TOTAL 0.6 mg/dL (0.2-1.3); BLOOD UREA NITROGEN 24 mg/dL (7-20); CALCIUM 9.2 mg/dL (8.4-10.2); CARBON DIOXIDE 24 mmol/L (22-30); CHLORIDE 98 mmol/L (98-107); CREATINE KINASE 119 U/L (55-170); POTASSIUM 4.4 mmol/L (3.6-5.0); TOTAL PROTEIN 7.3 g/dL (6.3-8.2)
[2020-06-22 23:36] LABS: GLUCOSE 414 mg/dL (75-110)
--- NOTE | 2020-06-22 23:46 | RADIOLOGY REPORT (SQ) ---
EXAM DESCRIPTION: XR CHEST 2 VIEWS COMPLETED DATE/TME: 06/22/2020 23:04 CLINICAL HISTORY: 54 years Male, chest pain COMPARISON:Jul 15 2018 NUMBER OF VIEWS/TECHNIQUE: 2, PA/Lateral FINDINGS: Adequate lung volume, clear parenchyma, normal cardiac silhouette, and sternotomy. IMPRESSION: No acute cardiopulmonary findings.
[2020-06-23] MEDS ORDERED: NORMAL SALINE 1000 ML 1,000 ML IV ONE (04:44)
--- NOTE | 2020-06-23 04:44 | ER Document Report ---
ED General - General Chief Complaint: Chest Pain Stated Complaint: CHEST PAIN Time Seen by Provider: 06/22/20 21:18 Primary Care Provider: EDWARD COTE MD [ACTIVE STAFF] - 06/25/20 VONAD AVERY PA-C [Primary Care Provider] - 06/25/20 Information source: Patient Notes: 54-year-old male presented to ED for complaint of chest pain. He states it started all of 21 June. He states he took a nitro all the way to the emergency room where he takes aspirin daily. He states he does have a history of an PA with a quadruple bypass 2 years ago. He states he has not followed up with his soap inspector since then. He states he also has history of diabetes for which he takes Jardiance 10 mg daily glipizide 10 mg daily and Metformin at 1000 mg twice a day. Patient states he no longer has chest pain at this time. He has been here for a while today. Constitutional: Negative for fever. HENT: Negative for sore throat. Eyes: Negative for visual changes. Cardiovascular: Patient came to the emergency room for complaint of chest pain that felt like squeezing in summary taking a fingernail to the chest. He states he does not have any chest pain at this time. Respiratory: Negative for shortness of breath. Gastrointestinal: Negative for abdominal pain, vomiting or diarrhea. Genitourinary: Negative for dysuria. Musculoskeletal: Negative for back pain. Skin: Negative for rash. Neurological: Negative for headaches, weakness or numbness. 10 point ROS negative except as marked above and in HPI. VITAL SIGNS: Within normal limits. GENERAL: No acute distress, non-toxic appearance. HEAD: Normal with no signs of head trauma. EYES: PERRLA, EOMI, conjunctiva normal, no discharge. EARS: Hearing grossly intact. NOSE: Normal. THROAT: Oropharynx is normal. NECK: Normal range of motion, no tenderness, supple, no lymphadenopathy, No adenopathy, no JVD. CHEST: Clear breath sounds bilaterally. No wheezes, rales, or rhonchi. CARDIAC: Regular rate and rhythm. S1 and S2, without murmurs, gallops, or rubs. VASCULAR: No Edema. Peripheral pulses normal and equal in all extremities. ABDOMEN: Normal and soft with no tenderness, no masses or pulsatile masses. GASTROINTESTINAL: Bowel sounds normal GENITOURINARY: Normal, No tenderness LYMPATHTIC: No lymphadenopathy noted. MUSCULOSKELETAL: Good range of motion of all major joints. Extremities without clubbing, cyanosis or edema. NEUROLOGICAL: Alert and oriented x 3. No focal sensory or strength deficits. Speech normal. Follows commands appropriately. PSYCHIATRIC: Normal Affect, judgement and mood. SKIN: Normal appearance with no rashes or lesions. TRAVEL OUTSIDE OF THE [place] IN LAST 30 DAYS: No - HPI Onset: Other - 06/21/2020 Onset/Duration: Gone Quality of pain: Sharp Severity: Moderate - When he came in but states he has no pain now Associated symptoms: Chest pain Exacerbated by: Denies Relieved by: Denies Similar symptoms previously: Yes Recently seen / treated by doctor: No - Related Data Allergies/Adverse Reactions: Penicillins Allergy (Verified 07/28/16 05:30) pineapple Allergy (Verified 07/28/16 05:30) Home Medications: metformin 1000mg BID. Jardiance 10mg daily. Glipizide 10mg. Advorstatin. metoprolol. Benlaflaxin. ASpirin. Omeprazole Past Medical History - General Information source: Patient - Social History Smoking Status: Former Smoker Chew tobacco use (# tins/day): No Frequency of alcohol use: None Drug Abuse: None Lives with: Family Family History: None Patient has suicidal ideation: No - Past Medical History Cardiac Medical History: Reports: Hx Coronary Artery Disease, Hx Hypercholesterolemia, Hx Hypertension Pulmonary Medical History: Reports: None EENT Medical History: Reports: None Neurological Medical History: Reports: None. Denies: Hx Seizures Endocrine Medical History: Reports: Hx Diabetes Mellitus Type 2 Renal/ Medical History: Reports: None Malignancy Medical History: Reports None GI Medical History: Reports: None Musculoskeletal Medical History: Reports Hx Musculoskeletal Deformity, Reports Hx Musculoskeletal Trauma Skin Medical History: Reports None Psychiatric Medical History: Reports: None Traumatic Medical History: Reports: Hx Fractures Infectious Medical History: Reports: None Past Surgical History: Reports: Hx Cardiac Catheterization, Hx Cardiac Surgery, Hx Coronary Stent - x4, Other - hernia repair - Immunizations Immunizations up to date: No Hx Diphtheria, Pertussis, Tetanus Vaccination: No Physical Exam - Vital signs Vitals: Temp Pulse Resp BP Pulse Ox 98.0 F 90 18 165/92 H 98 06/22/20 21:02 06/22/20 21:02 06/22/20 21:02 06/22/20 21:02 06/22/20 21:02 Course - Re-evaluation Re-evalutation: 06/23/20 09:15 Discussed chest x-ray EKG and lab work with Dr. Martinez. He recommended when the second troponin comes back to discuss the patient with Dr. Cote who is the soap inspector money counter. Second troponin did come back negative. I did discuss this with Dr. Cote. He stated he would see the patient on Thursday. I did give the patient the name and number of Dr. Cote for him to follow-up on Thursday. I also gave patient's name and number to Dr. Cote. Patient was also instructed to follow-up with his primary care doctor due to his elevated glucose. Patient stated he would call his doctor and follow-up on Thursday. Patient was discharged home. - Vital Signs Vital signs: Temp Pulse Resp BP Pulse Ox 98.0 F 90 16 173/91 H 98 06/22/20 21:02 06/22/20 21:02 06/23/20 06:01 06/23/20 06:00 06/23/20 06:01 - Laboratory Results Result Diagrams: 06/22/20 22:58 06/23/20 05:19 Laboratory Results Interpreted: 06/22/20 06/22/20 06/23/20 22:58 22:58 05:13 Plt Count 143 L Sodium 132.2 L BUN 24 H Glucose 414 H* POC Glucose 292 H ALT 55 H Urine Glucose (UA) Urine Ketones 06/23/20 06/23/20 05:19 06:45 Plt Count Sodium 136.4 L BUN 22 H Glucose 299 H POC Glucose ALT Urine Glucose (UA) >=500 H Urine Ketones 20 H Critical Laboratory Results Reviewed: Yes Attending or Supervising Physician who Reviewed Labs: ISAC MARTINEZ IV - glucose 414 - Radiology Results Critical Radiology Results Reviewed: No Critical Results Discharge - Discharge Clinical Impression: Diabetes mellitus type 2 in nonobese Chest pain Qualifiers: Chest pain type: unspecified Qualified Code(s): R07.9 - Chest pain, unspecified Hypertension Qualifiers: Hypertension type: essential hypertension Qualified Code(s): I10 - Essential (primary) hypertension Hyperglycemia due to type 2 diabetes mellitus Qualifiers: Diabetes mellitus alf insulin use: without ferry terminal supervisor use Qualified Code(s): E11.65 - Type 2 diabetes mellitus with hyperglycemia Condition: Stable Disposition: HOME, SELF-CARE Additional Instructions: CHEST PAIN OF UNCLEAR CAUSE: The exact cause of your chest pain isn't clear. Fortunately, there is no evidence of a dangerous medical condition. Further testing may be required to find the source of the pain. Most often, we find that this pain is coming from the chest wall -- the muscles or rib joints in the chest. But chest pain can come from the lung and lung lining, the esophagus, the heart valves or heart lining, and even the stomach or gallbladder. Rest. Eat lightly until the pain is gone. We may prescribe medicine for pain and inflammation. You should call the physician immediately if the pain radiates to the shoulder, jaw or arms; if you start to run a fever or develop a cough; or if you develop shortness of breath, or other new or alarming symptoms. HYPERGLYCEMIA (HIGH BLOOD SUGAR): You have an abnormally high blood sugar. Not all high blood sugar requires long-term treatment. High blood sugar can be due to medications, , or the stress of illness. (These cases are "borderline diabetes.") If the doctor feels your high blood sugar might resolve with time, you may not require treatment now. It's very important that you follow through, to see if the blood sugar returns to normal levels. Uncontrolled high blood sugar leads to early heart disease, strokes, nerve damage, eye damage, and kidney damage. Call the physician if there is faintness, excess sleepiness, or very rapid breathing. ORAL HYPOGLYCEMIC MEDICATION: Oral hypoglycemics are medicines that lower blood sugar in diabetics. They are not effective for younger diabetics who require insulin. Some brands are tolbutamide, Orinase, glipizide, Glucotrol, glyburide, DiaBeta, Glynase, and Micronase. Some medications can increase or decrease the effect of Diabinese. Examples are Clofibrate (Atromid-S), phenylbutazone (Butazolidin), aspirin, sulfonamides, Coumadin, allopurinol (Zyloprim), probenecid (Benemid), acetazolamide (Diamox), beta blockers, steroids, estrogens, Indocin, INH, Levothyroxine, nicotinic acid, Diflucan, Dilantin, and thiazide diuretics. Be sure your doctor knows all the medicines you take, and talk to your doctor before making any changes in your medicines. If you develop symptoms of shakiness, sweats, and lightheadedness, your blood sugar may have gone too low. Eat or drink a small amount of sweet food. If symptoms don't go away, call your doctor. Intravenous (IV) Fluids As part of your care today, you received intravenous (IV) fluids. IV fluids are administered to patients who are dehydrated or to those who have certain chemical (electrolyte) abnormalities that need correcting. I have spoken to Dr. Cote a soap inspector. He states that his secretary specialist would be calling you Thursday but if you do not get a call Thursday to please come into the office and they will see you Thursday. Follow-up with your primary care doctor on Thursday by phone or by visit to follow-up with your elevated blood sugar. You do have p.o. medications to take for your diabetes but your levels were high today. Please watch your diet and follow-up with the doctor. FOLLOW-UP CARE: If you have been referred to a physician for follow-up care, call the physicians office for an appointment as you were instructed or within the next two days. If you experience worsening or a significant change in your symptoms, notify the physician immediately or return to the Emergency Department at any time for re-evaluation. Forms: Elevated Blood Pressure, Return to Work Referrals: EDWARD COTE MD [ACTIVE STAFF] - 06/25/20 VONDA AVERY PA-C [Primary Care Provider] - 06/25/20
[2020-06-23 06:03] LABS: ANION GAP 9 (5-19); BLOOD UREA NITROGEN 22 mg/dL (7-20); CALCIUM 9.2 mg/dL (8.4-10.2); CARBON DIOXIDE 24 mmol/L (22-30); CHLORIDE 103 mmol/L (98-107); GLUCOSE 299 mg/dL (75-110); POTASSIUM 4.4 mmol/L (3.6-5.0)
[2020-06-23 07:05] LABS: APPEARANCE,URINE CLEAR; BILIRUBIN,URINE NEGATIVE (NEGATIVE); COLOR,URINE STRAW; GLUCOSE, URINE >=500 mg/dL (NEGATIVE); KETONES,URINE 20 mg/dL (NEGATIVE); LEUKOCYTE ESTERASE,URINE NEGATIVE (NEGATIVE); NITRITE,URINE NEGATIVE (NEGATIVE); PROTEIN,URINE NEGATIVE (NEGATIVE); URINE SPECIFIC GRAVITY 1.028; UROBILINOGEN,URINE NEGATIVE mg/dL (<2.0)
--- NOTE | 2020-06-23 07:53 | EKG REPORT ---
SEVERITY:- BORDERLINE ECG - SINUS RHYTHM PROBABLE LEFT ATRIAL ABNORMALITY : Confirmed by: Keith Morales MD 23-Jun-2020 07:53:14
[2020-06-23 09:22] VITALS: BP 165/91
--- NOTE | 2020-06-23 10:31 | ER Document Report ---
Doctor's Note Notes: 06/23/20 10:29 54-year-old male I was asked to evaluate along with nurse practitioner following presentation for chest pain. I have briefly evaluated the patient along with the midlevel provider and have reviewed all pertinent records. This gentleman has known CAD. He experienced pain overnight with no recurrence while in the emergency department. He was hemodynamically stable. 2 - troponins 3 hours apart. No acute changes on EKG. I recommend review of the case with on-call patient care manager Dr. Morales. He concurs that this man is stable for outpatient follow-up and will see him this week. Patient is advised to return emergency department immediately for new or worsening symptoms. Findings, clinical impression and plan of treatment have been discussed with patient/family. Understanding of current findings and recommendations has been acknowledged by them and there is agreement regarding disposition and follow-up.
== END 2020-06-23 09:10 | disposition home or self-care (01) ==
LOC: ER 20:56
DX: R07.9 Chest pain, unspecified (principal); E11.65 Type 2 diabetes mellitus with hyperglycemia; I25.10 Atherosclerotic heart disease of native coronary artery without angina pectoris; I10 Essential (primary) hypertension; I25.2 Old myocardial infarction; E78.00 Pure hypercholesterolemia, unspecified; Z79.84 Long term (current) use of oral hypoglycemic drugs; Z79.82 Long term (current) use of aspirin; Z79.899 Other long term (current) drug therapy; Z95.5 Presence of coronary angioplasty implant and graft; Z95.1 Presence of aortocoronary bypass graft; Z88.0 Allergy status to penicillin; Z91.018 Allergy to other foods
CPT/HCPCS: 99285; 96360; 36415; 82962; 82550; 83735; 85025; 80048; 80053; 81001; 84484; 71046; 93005; 93010; J7030